=== PATIENT | male | born 1960 | race Caucasian/White ===

== ENCOUNTER 2019-11-22 05:33 | Day surgery (SDC) | payer OTHER, SELFPAY ==
[2019-11-13 08:48] VITALS: BMI 23.8
--- NOTE | 2019-11-15 09:51 | EKG12_ITS ---
Test Reason : PRE OP Blood Pressure : / mmHG Vent. Rate : 055 BPM Atrial Rate : 055 BPM P-R Int : 130 ms QRS Dur : 138 ms QT Int : 440 ms P-R-T Axes : 045 050 065 degrees QTc Int : 420 ms Sinus bradycardia Right bundle branch block Abnormal ECG Confirmed by JUN HUNTER, RODRIGO ([id number]), rewrite editor CLAUDE MINOR ([id number]) on 11/16/2019 11:36:46 A M Referred By: Ish Jordan Confirmed By:NEIL BARAHONA MD
[2019-11-15 10:37] LABS: Hematocrit 40.8 % (40-54); Hemoglobin 13.6 g/dL (13.0-16.5); Mean Corp Hgb Conc 33.3 g/dL (32-36); Mean Corpuscular Hgb 32.9 pg (27.0-32.0); Mean Corpuscular Volume 98.6 fL (80-94); Mean Platelet Vol. 9.4 fl (6.2-12.0); Platelet Count 303 K/mm3 (150-450); RBC Distribution Width CV 12.4 % (11.6-14.6); RBC Distribution Width SD 44.6 fl (35.1-43.9); Red Blood Count 4.14 M/mm3 (4.6-6.2); White Blood Count 5.5 K/mm3 (4.4-11.0)
--- NOTE | 2019-11-18 11:16 | HP_ITS ---
Intake Vital Signs 11/13/19 Height 5 ft 9 in 11/13/19 Weight: 161 lb 11/13/19 BP 113/71 11/13/19 Blood Pressure Location Rt brachial 11/13/19 Position Sitting 11/13/19 Respiration 18 11/13/19 Pulse 65 11/13/19 Pulse Source Monitor 11/13/19 Temp 97.9 F 11/13/19 Temp Source Temporal 11/13/19 Pulse Oximetry (%) 98 11/13/19 Oxygen Delivery Method room air Intake Visit Reasons: Hernia Chief Complaint: possible right inguinal hernia Marker Machine Required: No Is patient in pain?: No Allergies No Known Allergies Allergy (Unverified 11/14/19 09:48) Medications NK 11/13/19 [History Confirmed 11/14/19] PFSH Medical History Bilateral inguinal hernia (Acute) Surgical History history ORIF right leg (Acute) Family History Father Cancer lung cancer Social History (Updated 11/18/19 @ 11:[address] Ish Jordan MD) Smoking Status: Former smoker alcohol intake: current details: pint of whiskey per week substance use type: does not use HPI HPI Surgical H&P: Yes HPI: SCOTT CLINTON, is a 59 M who presents to the office today for Evaluation for hernia. Patient has noticed a bulge on his right side gradually increasing in size and becoming more uncomfortable for him he has had no change in his bowel or bladder habits.He cannot recall any trauma. ROS General General: No weight change, appetite, fatigue, colon cancer, breast cancer or weakness HEENT HEENT: No difficulty swallowing, eye injury, eye surgery, swollen glands or hoarseness Endo Endocrine: No thyroid disease, diabetes mellitus, thyroid cancer, Hair loss, heat intolerance or cold intolerance Skin Skin: No rash or changing moles Breast Breast: No left breast lump, right breast lump, nipple discharge, breast pain, abnormal mammogram, abnormal US or breast enlargement Musc Musculoskeletal: No back problems, arthritis, rheumatoid arthritis, gout or joint pain Cardio Cardiovascular: No murmur, pacemaker, heart disease, atrial fibrillation, high blood pressure, heart attack, heart stent, palpitations, shortness of breat with exertion or chest pain Psych Psychiatric: No depression, anxiety or hearing voices Resp Respiratory: No shortness of breath, No sleep apnea, No cough, No COPD, No asthma, No emphysema, No wheezing Gastro Gastrointestinal: No abdominal pain, No nausea or vomiting, No diarrhea, No constipation, No blood in stool, No acid reflux, No hemorrhoids, No ulcers, No gallbladder problem, No black,tarry stools [place] Hematologic: No blood thinners, No blood disorders, No bleeding, No anemia, No blood clots Neuro Neurologic: No system reviewed and no additional complaints, except as docu, No as per HPI, No abnormal walking, No abnormal hearing, No abnormal movements, No abnormal speech, No behavioral changes, No burning sensations, No confusion, No seizure-like activity, No unsteadiness, No dizziness, No localized weakness, No frequent falls, No headache(s), No lack of coordination, No loss of vision, No memory loss, No numbness, No other visual disturbances, No radiating pain, No restless legs, No sensory deficit, No fainting, No tingling, No tremor(s), No weakness, No other Exam Const General: no acute distress, well developed, well hydrated Orientation: oriented to person, oriented to place, oriented to time [facility] Head: normocephalic, atraumatic Ears: external ears normal Mouth: moist mucous membranes Eyes Sclera: sclerae normal Pupils: normal by confrontation Neck Neck: no lymphadenopathy noted Neck mass: No Thyroid: thyroid normal, symmetrical Chest Chest palpation & inspection: normal inspection of the chest Breast Palpation: No nipple discharge Resp Effort & Inspection: normal respiratory effort Auscultation: clear to auscultation bilaterally Percussion: percussion normal Cardio Rate: regular rate Rhythm: regular rhythm Heart Sounds: no murmurs GI Palpation: soft, no hepatosplenomegaly, no masses, tender Rectal Exam: other Other: Large right inguinal hernia is identified but the patient also has a hernia on the left side as well which is smaller. Everything is reducible. Rectal exam deferred. Extrem General: normal to inspection, no clubbing, cyanosis or edema Assessment & Plan 1. Hernia K46.9 2. Non-recurrent bilateral inguinal hernia without obstruction or gangrene K40.20 Plan My plan is to perform And robotic assisted bilateral inguinal hernia repair. The planned surgical procedure was discussed extensively with the patient. The risks, benefits, anticipated outcomes and possible complication were mentioned. The patient understands that all hernia repair surgery has a chance of recurrence and/or chronic post-operative pain. My staff has also explained the procedure in understandable terms and the patient was given the option to take printed material concerning the planned procedure. The patient had the opportunity to ask questions concerning the planned procedure. The patient freely consents to the planned procedure. Coding Level of Care Code Off vis,new,level 3 Diagnoses Hernia K46.9 Non-recurrent bilateral inguinal hernia without obstruction or gangrene K40.20 ??Obstruction and gangrene presence: without obstruction or gangrene ??Recurrence: non-recurrent COVID (Procedure Consent) Procedure Criteria Procedure Criteria: Yes Elective The surgeon/proceduralist and patient have discussed in detail the risk of exposure to and/or potential harm posed by the COVID-19 virus with having a surgery/procedure at this time versus the risk of? delaying the surgery/procedure. It is not possible to know either the risk of delaying the surgery or procedure or chance of getting an infection with perfect accuracy, but a joint decision was made between the patient and the surgeon/proceduralist ?to proceed at this time with the scheduled surgery/procedure as indicated on the consent form. 11/18/19 1116 <Electronically signed by Ish albright MD> Date _ Ish Jordan MD I have re-examined the patient. There are no clinical changes since date of exam.
[2019-11-22] VITALS (9 sets, daily range): BP systolic 120–186; BP diastolic 74–99; PULSE 50–63; RESP 16; TEMP 36.4–36.8; O2SAT 95–99; BMI 31.6
[2019-11-22] MEDS: Lactated Ringers 1,000 ML 100 ML IV ×2 (06:09→09:59)
--- NOTE | 2019-11-22 07:20 | PCM.OPRPT ---
Problem List (1) Bilateral inguinal hernia Status: Acute Qualifiers: Obstruction and gangrene presence: without obstruction or gangrene Recurrence: non-recurrent Qualified Code(s): K40.20 - Bilateral inguinal hernia, without obstruction or gangrene, not specified as recurrent Report of Operation Date of Procedure: 11/22/19 Pre-Operative Diagnosis: Bilateral inguinal hernias Post-Operative Diagnosis: Same Surgery/Procedure Performed:: Robotically assisted laparoscopic assisted bilateral inguinal hernia repairs Anesthesiologist: Pablito Vazquez Estimated Blood Loss (mL): < 25 cc Description of Procedure: Patient was brought to the operating room. Placed in the supine position. Under excellent general trach intubation Silva catheter was placed the abdomen was sterilely prepped draped usual fashion. Local was injected supraumbilically dissection was carried down to the fascia the fascia grasped with a Lucy varies needle was placed inside the abdomen the abdomen was insufflated 15 torr. A #8 trocar was placed. It was flank by 2 other #8 trochars both placed under direct visualization without injury to underlying structures. Patient was placed in the headdown position robot was brought in and docked appropriately. I then went to the console. I scored the peritoneum on the right dissecting down bringing back a large direct inguinal hernia and then dissecting further down until identified Joshua's ligament I dissected further medially to the pubic tubercle and went slightly over to the left side. And then finally dissected laterally dissecting the cord and vessel structures free. I then went to the left side scored the peritoneum on the left once again dissecting down bringing back a direct inguinal hernia then identifying Joshua's ligament. I then dissected the cord and vessel structures free and dissected further laterally. 2 pieces of mesh were then brought into the abdomen. I laid the mesh into the right inguinal area covering the direct indirect and femoral areas without difficulty. I laid the other mesh out on the left side in similar fashion the mesh laid completely flat and looked quite nice. Then 2 sutures of 3 OV lock were placed inside the abdomen I brought the peritoneum back together with a running suture of V lock on the right peritoneum and on the left. Both sutures were removed without difficulty the area looked all some virtually no blood loss there was no rents in the peritoneum whatsoever. Trochars were removed skin incisions were closed with subcuticular stitches of 4-0 Monocryl. Steri-Strips were applied. Sterile dressings were applied. The patient tolerated the procedure well. Silav catheter was removed prior to extubation. - Admit VTE Documentation VTE Present on Admission: No VTE Mechan Device Prophylaxis: SCD's VTE Pharm Prophylaxis ordered?: No Reason prophylaxis not ordered:: Treatment Not Indicated [id number]: [id number] Lap ing hernia repair init
--- NOTE | 2019-11-22 07:23 | PCM.DC.HER ---
Discharge Diet: Light diet - advance as tolerated Discharge Activity: Return to Normal Activity, May Drive - when you are no longer taking narcotic pain medications., May Shower - with the bandage in place 1-2 days after surgery. Lifting Restrictions: 20 pounds for 8 weeks. Additional Activity Instructions:: Climbing stairs is fine, walking is encouraged. Sitting in bed may be uncomfortable. Sitting up using your lateral muscles (sitting up sideways) is usually more comfortable. Do not drive, work heavy equipment of sign legal documents for 24 hours. If your hernia repair was an ingunial repair, you may have scrotal swelling, an ice pack and/or athletic support can provide more comfort. Pain medications may cause nausea, you should typically eat light foods as you take your pain medications. Pain medications may also cause constipation. If you have difficulty with this, discuss with your doctor. Call your doctor if your incision/area has: Continuous Slow Oozing, Sudden Increased Bleeding, Increased Pain/ Swelling, Increased Redness, Foul Smelling Discharge Call your doctor if you observe: Fever of 101 or Higher Suture Line Care: Avoid Pulling/Pushing, Avoid Pinching/Bending Additional Dressing/Incision Instructions:: Leave the operative bandage on for 2-3 days. When you remove the bandage, leave the steri-strips on place until your follow up appointment or they fall off. Allergies/Adverse Reactions: Allergies No Known Allergies Allergy (Unverified 11/22/19 05:45) Medications to take at Discharge Oxycodone HCl/Acetaminophen [Percocet 5/325] 1 - 2 tablet PO Q4H PRN PRN 6 Days #30 tablet 11/22/19 The following prescriptions were given: Oxycodone HCl/Acetaminophen [Percocet 5/325] 1 - 2 tablet PO Q4H PRN PRN 6 Days #30 tablet PRN Reason: Pain Transmission Status: Received by ELIEZER SORTO-1955 [facility] Primary Care Physician: Care Physician,No Primary [Primary Care Provider] - Test Results: Test results from this visit will be discussed in further detail at your follow-up appointment, if applicable. Please Follow Up With: Ish Jordan MD - [phone] When: Plan to have a follow up appointment in 7 days. Call to schedule.
[2019-11-22] MEDS: Cefazolin 2 GM in 0.9% Normal Saline 100 ML IV (07:25)
[2019-11-22] MEDS: Bupivacaine Mpf 0.5% 30 ML VIAL (09:00)
[2019-11-22] MEDS: Lactated Ringers 1,000 ML 1000 ML IV (09:35)
== END 2019-11-22 12:05 | disposition home or self-care (01) ==
LOC: SDC 05:36 → AC 05:37
PROVIDERS: Anesthesiology; Referring Provider Surgery; Visit Provider Surgery
PROC: (CPT 49650; principal; 2019-11-22 07:10)
DX: K40.20 Bilateral inguinal hernia, without obstruction or gangrene, not specified as recurrent (principal); Z11.59 Encounter for screening for other viral diseases; Z87.891 Personal history of nicotine dependence
CPT/HCPCS: 00840; 49650; S2900; 36415; 85027; 87635; 93005; 94799; J7120; J2405; U0003